=== PATIENT | male | born 1950 | race American Indian/Alaskan Native ===

== ENCOUNTER 2019-05-12 08:52 | Day surgery (SDC) | payer OTHER ==
[2019-05-12] MEDS ORDERED: NACL 0.9% 1000 ML 1,000 ML IV SCH (11:00)
[2019-05-12] MEDS ORDERED: VERSED ONE (11:53)
[2019-05-12] MEDS ORDERED: DIPRIVAN 10 MG/ML IV ONE ×3 (11:53)
[2019-05-12] MEDS ORDERED: WATER FOR IRRIG STERILE IR ONE (12:16)
--- NOTE | 2019-05-12 12:33 | Operative Report ---
Operative Report Operative Report: Date of procedure: 05/12/2019 Procedure: Esophagogastroduodenoscopy with multiple mucosal biopsies Attending physician: Giovanni Paez M.D. Tso: Giovanni Paez M.D. Indication: Patient is a 68-year-old male who presented with a history of epigastric pain heartburn and indigestion with dysphagia. Patient had a CT scan of the abdomen and pelvis that showed thickening of the distal esophagus. He also has a history of dysphagia. Patient with personal history of pancreatic cancer on treatment. An upper endoscopy is done to assess patient so that treatment may be directed based on the findings. Consent: Informed consent was obtained after advising the patient and family regarding nature of this procedure, its indications, potential benefits as well as possible complications including but not limited to bleeding perforation and adverse reaction to medication, infection as well as other cardiopulmonary complications. An informed written and verbal consent was then obtained after due opportunity was provided for questions and answers. Monitoring: Patient was monitored continuously with pulse oximetry and electrocardiographic recordings as well as blood pressure recordings. Vital signs remained stable throughout this procedure with no untoward events. Preoperative assessment: Patient was assessed immediately prior to this procedure for capacity to tolerate monitored anesthesia care and moderate sedation as well as general anesthesia. Patient's ASA classification is 3, Mallampati class is 2, Hyomental distance is 3. Instrument: Olympus video endoscope Medications: Propofol given intravenously in divided doses. For details please refer to anesthesia records. Description of procedure: Patient was placed in the left lateral decubitus position after achieving sedation, the endoscope was introduced into the esophagus under direct vision. It was then advanced beyond the esophagus into the stomach and then beyond the stomach into the duodenum and to the second portion of the duodenum. It was subsequently withdrawn with careful inspection of all mucosal surfaces with the following findings. Findings: In the esophagus, the Z line was irregular at 39 cm. There was erythema seen in the gastric antrum. Biopsies of the antrum were obtained for histopathology. Pylorus was patulous. The duodenum was normal to second portion. Impression: Irregular Z line Gastric antral erythema Patulous pyloric channel. Plan: Follow pathology report. Continue treatment with proton pump inhibitors and direct additional treatment based on the pathology report.
--- NOTE | 2019-05-12 12:34 | Discharge Summary ---
Short Stay Discharge Plan Activity: advance as tolerated Weight Bearing Status: Weight Bear as Tolerated Diet: regular Follow up with: [facility] [Primary Care Provider] - 7 Days
[2019-05-12 13:29] VITALS: BP 158/92
== END 2019-05-12 08:53 | disposition home or self-care (01) ==
LOC: GIO 08:52
PROVIDERS: ATTEND Internal Medicine Gastroenterology
DX: K31.9 Disease of stomach and duodenum, unspecified (principal); R13.10 Dysphagia, unspecified; I10 Essential (primary) hypertension; E11.9 Type 2 diabetes mellitus without complications; F17.210 Nicotine dependence, cigarettes, uncomplicated; Z85.07 Personal history of malignant neoplasm of pancreas; Z79.899 Other long term (current) drug therapy; Z72.89 Other problems related to lifestyle
CPT/HCPCS: 43239; 82962; 88305; 88342; J2250; J2704; J7030